=== PATIENT | female | born 1955 | race Caucasian/White ===

== ENCOUNTER 2023-09-04 08:35 | Inpatient (IN) | payer OTHER ==
[2023-09-04 10:17] LABS: BASO % 2.1 % (0-2.0); EOS % 1.8 % (0-4.5); HEMATOCRIT 34.6 % (32.4-45.2); HEMOGLOBIN 10.7 GM/dL (10.7-15.3); LYMPH % 12.4 % (8-40); MCH 24.6 pg (25.7-33.7); MCHC 30.9 g/dl (32.0-36.0); MEAN CELL VOLUME 79.7 fl (80-96); MEAN PLT VOLUME 7.7 fl (7.5-11.1); MONO % 12.6 % (3.8-10.2); NEUT % 71.1 % (42.8-82.8); PLATELET COUNT 347 10^3/uL (134-434); RBC 4.34 M/mm3 (3.60-5.2); RDW 19.1 % (11.6-15.6)
[2023-09-04 10:30] LABS: INR 0.98 (0.83-1.09); PROTHROMBIN TIME (PATIENT) 11.4 SEC (9.7-13.0)
[2023-09-04 10:32] LABS: ACTIVATED PTT 29.7 SECONDS (25.2-36.5)
[2023-09-04 10:41] LABS: POTASSIUM 3.9 mmol/L (3.5-5.1)
[2023-09-04 10:43] LABS: CALCIUM 8.8 mg/dL (8.5-10.1)
[2023-09-04 10:44] LABS: ALBUMIN 3.1 g/dl (3.4-5.0); BLOOD UREA NITROGEN 13.9 mg/dL (7-18); MAGNESIUM 2.1 mg/dL (1.8-2.4)
[2023-09-04 10:47] LABS: CREATININE 0.7 mg/dL (0.55-1.3)
[2023-09-04 10:48] LABS: BILIRUBIN,TOTAL 0.9 mg/dL (0.2-1)
[2023-09-04 10:52] LABS: TOT PROT 6.3 g/dl (6.4-8.2)
[2023-09-04] MEDS ORDERED: ACETAMINOPHEN 325 MG TABLET (FP) PO PRN (16:56)
[2023-09-04 23:54] LABS: PH,URINE 5.5 (5.0-8.0); URINE APPEARANCE CLEAR; URINE BILIRUBIN NEGATIVE (NEGATIVE); URINE COLOR YELLOW; URINE GLUCOSE (UA) NEGATIVE (NEGATIVE); URINE KETONE 2+ (NEGATIVE); URINE LEUK ESTERASE NEGATIVE (NEGATIVE); URINE NITRITE NEGATIVE (NEGATIVE); URINE PROTEIN NEGATIVE (NEGATIVE); URINE UROBILINOGEN 0.2 mg/dL (0.2-1.0)
[2023-09-05 08:10] LABS: BASO % 0.9 % (0-2.0); EOS % 1.9 % (0-4.5); HEMATOCRIT 35.3 % (32.4-45.2); HEMOGLOBIN 11.4 GM/dL (10.7-15.3); LYMPH % 13.3 % (8-40); MCH 25.5 pg (25.7-33.7); MCHC 32.3 g/dl (32.0-36.0); MEAN CELL VOLUME 79.1 fl (80-96); MEAN PLT VOLUME 7.8 fl (7.5-11.1); MONO % 8.7 % (3.8-10.2); NEUT % 75.2 % (42.8-82.8); PLATELET COUNT 368 10^3/uL (134-434); RBC 4.46 M/mm3 (3.60-5.2); RDW 18.5 % (11.6-15.6); WHITE BLOOD COUNT 4.9 K/mm3 (4.0-10.0)
[2023-09-05] MEDS ORDERED: ENOXAPARIN NA (PORCINE) 40 MG/0.4 ML DISP.SYRIN SQ ONE (08:15)
[2023-09-05 08:42] LABS: ALBUMIN 3.3 g/dl (3.4-5.0); BLOOD UREA NITROGEN 22.2 mg/dL (7-18); CALCIUM 8.9 mg/dL (8.5-10.1)
[2023-09-05 08:43] LABS: MAGNESIUM 2.2 mg/dL (1.8-2.4)
[2023-09-05 08:45] LABS: CREATININE 0.7 mg/dL (0.55-1.3); PHOSPHOROUS 3.8 mg/dL (2.5-4.9)
[2023-09-05 08:47] LABS: BILIRUBIN,TOTAL 0.5 mg/dL (0.2-1); TOT PROT 6.5 g/dl (6.4-8.2)
[2023-09-05] MEDS ORDERED: ENOXAPARIN NA (PORCINE) 40 MG/0.4 ML DISP.SYRIN SQ SCH (10:00)
[2023-09-05] MEDS ORDERED: SODIUM CHLORIDE 1,000 ML IV SCH (10:45)
[2023-09-05] MEDS: SODIUM CHLORIDE 1,000 ML IV SCH (11:04)
[2023-09-05 11:40] LABS: RETICULOCYTES 0.76 % (0.5-1.5)
[2023-09-05] MEDS ORDERED: SODIUM CHLORIDE FOR INHALATION 3 ML VIAL.NEB IH ONE (17:12)
[2023-09-06 07:24] LABS: HEMATOCRIT 33.1 % (32.4-45.2); HEMOGLOBIN 10.4 GM/dL (10.7-15.3); MCH 24.7 pg (25.7-33.7); MCHC 31.3 g/dl (32.0-36.0); MEAN CELL VOLUME 79.1 fl (80-96); MEAN PLT VOLUME 8.1 fl (7.5-11.1); PLATELET COUNT 341 10^3/uL (134-434); RBC 4.19 M/mm3 (3.60-5.2); RDW 18.6 % (11.6-15.6); WHITE BLOOD COUNT 4.7 K/mm3 (4.0-10.0)
[2023-09-06 07:56] LABS: ALBUMIN 3.1 g/dl (3.4-5.0); BLOOD UREA NITROGEN 21.4 mg/dL (7-18); CALCIUM 8.6 mg/dL (8.5-10.1)
[2023-09-06 07:59] LABS: CREATININE 0.7 mg/dL (0.55-1.3)
[2023-09-06 08:01] LABS: BILIRUBIN,TOTAL 0.4 mg/dL (0.2-1)
[2023-09-06] MEDS ORDERED: SODIUM CHLORIDE NASAL SPRAY 44 ML BOTTLE NS PRN (16:54)
[2023-09-06] MEDS: SODIUM CHLORIDE 1,000 ML IV SCH (19:46)
[2023-09-07 00:36] VITALS: BMI 14.6
[2023-09-07] MEDS: ASPIRIN COATED 81 MG TABLET.EC PO SCH (09:38)
[2023-09-07] MEDS: FERROUS GLUCONATE 324 MG TAB (FP) PO SCH (09:38)
[2023-09-07] MEDS: SODIUM CHLORIDE 1,000 ML IV SCH (12:57)
[2023-09-07] MEDS ORDERED: ZOLPIDEM TARTRATE 5 MG TABLET PO ONE (20:00)
[2023-09-08 07:20] LABS: HEMATOCRIT 33.6 % (32.4-45.2); HEMOGLOBIN 10.6 GM/dL (10.7-15.3); MCH 24.9 pg (25.7-33.7); MCHC 31.6 g/dl (32.0-36.0); MEAN CELL VOLUME 78.8 fl (80-96); MEAN PLT VOLUME 8.4 fl (7.5-11.1); PLATELET COUNT 328 10^3/uL (134-434); RBC 4.26 M/mm3 (3.60-5.2); RDW 19.3 % (11.6-15.6); WHITE BLOOD COUNT 5.1 K/mm3 (4.0-10.0)
[2023-09-08 07:29] LABS: POTASSIUM 4.5 mmol/L (3.5-5.1)
[2023-09-08 07:32] LABS: CALCIUM 9.2 mg/dL (8.5-10.1)
[2023-09-08 07:33] LABS: BLOOD UREA NITROGEN 9.8 mg/dL (7-18); MAGNESIUM 1.8 mg/dL (1.8-2.4)
[2023-09-08 07:36] LABS: CREATININE 0.7 mg/dL (0.55-1.3); PHOSPHOROUS 4.2 mg/dL (2.5-4.9)
[2023-09-08] MEDS: ASPIRIN COATED 81 MG TABLET.EC PO SCH (09:26)
[2023-09-08] MEDS: FERROUS GLUCONATE 324 MG TAB (FP) PO SCH (09:26)
[2023-09-08] MEDS ORDERED: SODIUM CHLORIDE 1,000 ML IV SCH (14:45)
[2023-09-08] MEDS ORDERED: ZOLPIDEM TARTRATE 5 MG TABLET PO ONE (19:55)
[2023-09-09 07:10] LABS: HEMATOCRIT 31.6 % (32.4-45.2); HEMOGLOBIN 10.1 GM/dL (10.7-15.3); MCH 25.2 pg (25.7-33.7); MCHC 32.1 g/dl (32.0-36.0); MEAN CELL VOLUME 78.6 fl (80-96); MEAN PLT VOLUME 8.5 fl (7.5-11.1); PLATELET COUNT 293 10^3/uL (134-434); RBC 4.02 M/mm3 (3.60-5.2); RDW 18.9 % (11.6-15.6); WHITE BLOOD COUNT 5.2 K/mm3 (4.0-10.0)
[2023-09-09 07:32] LABS: POTASSIUM 4.4 mmol/L (3.5-5.1)
[2023-09-09 07:37] LABS: BLOOD UREA NITROGEN 7.8 mg/dL (7-18)
[2023-09-09 07:39] LABS: ALBUMIN 2.8 g/dl (3.4-5.0)
[2023-09-09 07:42] LABS: CREATININE 0.7 mg/dL (0.55-1.3)
[2023-09-09 07:43] LABS: BILIRUBIN,TOTAL 0.4 mg/dL (0.2-1); TOT PROT 5.4 g/dl (6.4-8.2)
[2023-09-09 09:08] VITALS: RESP 18; TEMP 98.7
[2023-09-09] MEDS: ASPIRIN COATED 81 MG TABLET.EC PO SCH (10:03)
[2023-09-09] MEDS: FERROUS GLUCONATE 324 MG TAB (FP) PO SCH (10:03)
[2023-09-09 10:19] VITALS: BP 98/66; PULSE 78
== END 2023-09-09 16:04 | DRG 640 ==
LOC: JER 08:35 → JERBED 12:23 → OBSVTOIN 09-05 13:31 → J4W 09-05 19:00
PROVIDERS: ADMIT Internal Medicine; ATTEND Internal Medicine
DX: E86.0 Dehydration (principal); E43 Unspecified severe protein-calorie malnutrition; R04.2 Hemoptysis; Z68.1 Body mass index [BMI] 19.9 or less, adult; I95.1 Orthostatic hypotension; E86.9 Volume depletion, unspecified; I48.91 Unspecified atrial fibrillation; M48.02 Spinal stenosis, cervical region; D50.9 Iron deficiency anemia, unspecified
CPT/HCPCS: 0241U-QW; 36415; 70450-TC; 71045-TC-FY; 71250-TC; 80048; 80053; 81003; 82607; 82728; 82746; 82962; 83540; 83550; 83735; 84100; 84484; 85025; 85027; 85045; 85379; 85610; 85730; 86850; 86900; 86901; 87086; 87186; 93005; 93010; 93306-TC; 97116-GP; 97162-GP; 99285-25; G0378

== ENCOUNTER 2023-11-06 11:22 | Inpatient (IN) | payer OTHER ==
[2023-11-06] MEDS ORDERED: ACETAMINOPHEN INJECTION 100 ML IVPB ONE (13:44)
[2023-11-06] MEDS: ACETAMINOPHEN 1000 MG/100 ML BAG IVPB ONE (13:54)
[2023-11-06] MEDS: SODIUM CHLORIDE 0.9% 500 ML INFUS.BAG IV ONE (13:55)
[2023-11-06 13:56] LABS: VENOUS BASE EXCESS -9.4 mmol/L (-2-2); VENOUS O2 SATURATION 72.7 % (70-80); VENOUS PH 7.265 (7.310-7.410)
[2023-11-06 14:03] LABS: HEMATOCRIT 45.5 % (32.4-45.2); HEMOGLOBIN 14.4 GM/dL (10.7-15.3); MCH 25.6 pg (25.7-33.7); MCHC 31.6 g/dl (32.0-36.0); MEAN PLT VOLUME 8.3 fl (7.5-11.1); PLATELET COUNT 398 10^3/uL (134-434); RBC 5.61 M/mm3 (3.60-5.2); RDW 24.8 % (11.6-15.6)
[2023-11-06 14:10] LABS: PROTHROMBIN TIME (PATIENT) 11.6 SEC (9.7-13.0)
[2023-11-06 14:13] LABS: ACTIVATED PTT 30.7 SECONDS (25.2-36.5)
[2023-11-06 14:17] LABS: POTASSIUM 4.8 mmol/L (3.5-5.1)
[2023-11-06 14:19] LABS: CALCIUM 9.4 mg/dL (8.5-10.1)
[2023-11-06 14:20] LABS: ALBUMIN 3.9 g/dl (3.4-5.0); BLOOD UREA NITROGEN 41.1 mg/dL (7-18); MAGNESIUM 2.2 mg/dL (1.8-2.4)
[2023-11-06 14:23] LABS: CREATININE 1.8 mg/dL (0.55-1.3); PHOSPHOROUS 4.9 mg/dL (2.5-4.9)
[2023-11-06 14:24] LABS: BILIRUBIN,TOTAL 0.5 mg/dL (0.2-1); TOT PROT 7.4 g/dl (6.4-8.2)
[2023-11-06 14:40] LABS: ANISOCYTOSIS 2+; MACROCYTOSIS 0
[2023-11-06 15:26] LABS: EPI CELLS 24 /uL (0-25.1); HYALINE CASTS 14 /uL (0-3.1); URINE APPEARANCE CLEAR; URINE BACTERIA 12 /uL (0-1359); URINE BILIRUBIN NEGATIVE (NEGATIVE); URINE COLOR DK YELLOW; URINE GLUCOSE (UA) NEGATIVE (NEGATIVE); URINE KETONE 2+ (NEGATIVE); URINE LEUK ESTERASE TRACE (NEGATIVE); URINE NITRITE NEGATIVE (NEGATIVE); URINE PROTEIN 1+ (NEGATIVE); URINE RBC 20 /uL (0-23.9); URINE WBC 51 /uL (0-25.8)
[2023-11-06] MEDS: SODIUM CHLORIDE 1,000 ML IV SCH (16:31)
[2023-11-06 20:21] LABS: POTASSIUM 3.9 mmol/L (3.5-5.1)
[2023-11-06 20:23] LABS: BLOOD UREA NITROGEN 37.8 mg/dL (7-18)
[2023-11-06 20:26] LABS: CREATININE 1.4 mg/dL (0.55-1.3)
[2023-11-06] MEDS: QUEtiapine FUMARATE 50 MG TABLET PO SCH (22:38)
[2023-11-06] MEDS: HEPARIN NA (PORCINE) 5,000 UNITS/ML 1ML VIAL SQ SCH (22:38)
[2023-11-07] MEDS: ACETAMINOPHEN 325 MG TABLET (FP) PO PRN (07:00)
[2023-11-07 08:26] LABS: HEMATOCRIT 30.4 % (32.4-45.2); MCH 26.4 pg (25.7-33.7); MCHC 33.1 g/dl (32.0-36.0); MEAN CELL VOLUME 79.9 fl (80-96); MEAN PLT VOLUME 8.1 fl (7.5-11.1); PLATELET COUNT 268 10^3/uL (134-434); RDW 24.5 % (11.6-15.6); WHITE BLOOD COUNT 6.9 K/mm3 (4.0-10.0)
[2023-11-07 08:43] LABS: POTASSIUM 3.7 mmol/L (3.5-5.1)
[2023-11-07 08:45] LABS: BLOOD UREA NITROGEN 28.8 mg/dL (7-18); CALCIUM 8.2 mg/dL (8.5-10.1)
[2023-11-07 08:46] LABS: MAGNESIUM 1.8 mg/dL (1.8-2.4)
[2023-11-07 08:49] LABS: PHOSPHOROUS 2.6 mg/dL (2.5-4.9)
[2023-11-07 08:50] LABS: BILIRUBIN,TOTAL 0.3 mg/dL (0.2-1)
[2023-11-07 08:54] LABS: ALBUMIN 2.5 g/dl (3.4-5.0)
[2023-11-07] MEDS: SODIUM CHLORIDE 1,000 ML IV STA ×2 (10:00→11:13)
[2023-11-07] MEDS: MIRTAZAPINE 15 MG TABLET (FP) PO SCH (10:00)
[2023-11-07] MEDS ORDERED: ENOXAPARIN NA (PORCINE) 30 MG/0.3 ML DISP.SYRIN SQ SCH (10:00)
[2023-11-07] MEDS: LEVOTHYROXINE NA 25 MCG TABLET (FP) PO SCH (12:55)
[2023-11-08 09:14] LABS: BASO % 0.7 % (0-2.0); EOS % 0.8 % (0-4.5); HEMATOCRIT 30.9 % (32.4-45.2); HEMOGLOBIN 9.8 GM/dL (10.7-15.3); LYMPH % 7.8 % (8-40); MCH 25.6 pg (25.7-33.7); MCHC 31.7 g/dl (32.0-36.0); MEAN CELL VOLUME 80.9 fl (80-96); MEAN PLT VOLUME 8.1 fl (7.5-11.1); MONO % 9.2 % (3.8-10.2); NEUT % 81.5 % (42.8-82.8); PLATELET COUNT 237 10^3/uL (134-434); RBC 3.82 M/mm3 (3.60-5.2); RDW 25.1 % (11.6-15.6); RETICULOCYTES 0.39 % (0.5-1.5)
[2023-11-08 09:34] LABS: POTASSIUM 3.3 mmol/L (3.5-5.1)
[2023-11-08 09:37] LABS: ALBUMIN 2.6 g/dl (3.4-5.0); BLOOD UREA NITROGEN 13.3 mg/dL (7-18); CALCIUM 7.6 mg/dL (8.5-10.1)
[2023-11-08 09:38] LABS: MAGNESIUM 1.6 mg/dL (1.8-2.4)
[2023-11-08 09:41] LABS: PHOSPHOROUS 1.8 mg/dL (2.5-4.9)
[2023-11-08 09:42] LABS: BILIRUBIN,TOTAL 0.3 mg/dL (0.2-1); CREATININE 0.6 mg/dL (0.55-1.3); TOT PROT 5.2 g/dl (6.4-8.2)
[2023-11-08] MEDS: MAGNESIUM 1GM/D5W 100ML - 100 ML IVPB IVPB ONE (13:20)
[2023-11-08] MEDS: NAPH,MB-DB/K PH,MBDB POWDER PACKET PO ONE (13:20)
[2023-11-08] MEDS: POTASSIUM CHLORIDE ORAL LIQUID 20 MEQ/15 ML PO ONE (17:36)
[2023-11-08] MEDS: AMINO ACIDS 4.25%/D5W 1,000 ML IV SCH (18:42)
[2023-11-08 20:00] VITALS: BMI 12.8
[2023-11-08] MEDS: ONDANSETRON 4 MG/2 ML VIAL IVPUSH ONE (22:50)
[2023-11-08] MEDS: PANTOPRAZOLE SODIUM 40 MG VIAL IVPUSH ONE (22:50)
[2023-11-09 08:56] LABS: POTASSIUM 3.9 mmol/L (3.5-5.1)
[2023-11-09 08:57] LABS: HEMATOCRIT 30.2 % (32.4-45.2); HEMOGLOBIN 10.1 GM/dL (10.7-15.3); MCH 26.7 pg (25.7-33.7); MCHC 33.5 g/dl (32.0-36.0); MEAN CELL VOLUME 79.6 fl (80-96); MEAN PLT VOLUME 8.4 fl (7.5-11.1); PLATELET COUNT 215 10^3/uL (134-434); RDW 24.8 % (11.6-15.6); WHITE BLOOD COUNT 4.4 K/mm3 (4.0-10.0)
[2023-11-09 08:59] LABS: BLOOD UREA NITROGEN 8.3 mg/dL (7-18); CALCIUM 8.1 mg/dL (8.5-10.1)
[2023-11-09 09:01] LABS: ALBUMIN 2.4 g/dl (3.4-5.0); MAGNESIUM 1.7 mg/dL (1.8-2.4)
[2023-11-09 09:02] LABS: CREATININE 0.5 mg/dL (0.55-1.3); PHOSPHOROUS 1.9 mg/dL (2.5-4.9)
[2023-11-09 09:04] LABS: BILIRUBIN,TOTAL 0.2 mg/dL (0.2-1)
[2023-11-09] MEDS: PANTOPRAZOLE SODIUM 40 MG VIAL IVPUSH SCH (10:45)
[2023-11-09] MEDS: MAGNESIUM 1GM/D5W 100ML - 100 ML IVPB IVPB ONE (12:00)
[2023-11-09] MEDS: IRON SUCROSE INJECTION 200 MG in SODIUM CHLORIDE 100 ML IVPB ONE (15:14)
[2023-11-09] MEDS: MIRTAZAPINE 15 MG TABLET (FP) PO SCH (22:02)
[2023-11-09] MEDS: POLYETHYLENE GLYCOL (HEALTHYLAX) 3350 17 GM PACKET PO SCH (22:04)
[2023-11-10] MEDS: NAPH,MB-DB/K PH,MBDB POWDER PACKET PO SCH (09:10)
[2023-11-10 10:33] LABS: HEMATOCRIT 34.3 % (32.4-45.2); MCH 25.9 pg (25.7-33.7); MCHC 32.2 g/dl (32.0-36.0); MEAN CELL VOLUME 80.5 fl (80-96); MEAN PLT VOLUME 8.7 fl (7.5-11.1); PLATELET COUNT 250 10^3/uL (134-434); RBC 4.26 M/mm3 (3.60-5.2); RDW 25.1 % (11.6-15.6); WHITE BLOOD COUNT 4.6 K/mm3 (4.0-10.0)
[2023-11-10 10:54] LABS: POTASSIUM 3.6 mmol/L (3.5-5.1)
[2023-11-10 11:04] LABS: ALBUMIN 2.7 g/dl (3.4-5.0); CALCIUM 8.5 mg/dL (8.5-10.1); MAGNESIUM 1.9 mg/dL (1.8-2.4)
[2023-11-10 11:05] LABS: BLOOD UREA NITROGEN 9.5 mg/dL (7-18)
[2023-11-10 11:06] LABS: BILIRUBIN,TOTAL 0.2 mg/dL (0.2-1); TOT PROT 5.5 g/dl (6.4-8.2)
[2023-11-10 11:07] LABS: CREATININE 0.5 mg/dL (0.55-1.3)
[2023-11-10 20:11] LABS: GLIADIN ANTIBODY IGA 5 units (0-19); GLIADIN ANTIBODY IGG 2 units (0-19); TRANSGLUTAMINASE IGG < 2 U/mL (0-5)
[2023-11-11 10:11] LABS: HEMOGLOBIN 11.1 GM/dL (10.7-15.3); MCH 26.1 pg (25.7-33.7); MCHC 32.6 g/dl (32.0-36.0); MEAN CELL VOLUME 80.2 fl (80-96); MEAN PLT VOLUME 8.1 fl (7.5-11.1); PLATELET COUNT 265 10^3/uL (134-434); RBC 4.24 M/mm3 (3.60-5.2); RDW 24.9 % (11.6-15.6); WHITE BLOOD COUNT 4.7 K/mm3 (4.0-10.0)
[2023-11-11 10:21] LABS: POTASSIUM 3.4 mmol/L (3.5-5.1)
[2023-11-11 10:27] LABS: CALCIUM 8.3 mg/dL (8.5-10.1)
[2023-11-11 10:28] LABS: ALBUMIN 2.7 g/dl (3.4-5.0); MAGNESIUM 1.7 mg/dL (1.8-2.4)
[2023-11-11 10:31] LABS: CREATININE 0.6 mg/dL (0.55-1.3); PHOSPHOROUS 2.3 mg/dL (2.5-4.9)
[2023-11-11 10:32] LABS: BILIRUBIN,TOTAL 0.3 mg/dL (0.2-1)
[2023-11-11 10:36] LABS: TOT PROT 5.6 g/dl (6.4-8.2)
[2023-11-11 10:39] LABS: BLOOD UREA NITROGEN 14.9 mg/dL (7-18)
[2023-11-11 17:10] LABS: IG A QN SERUM. 228 mg/dL (87-352)
[2023-11-11] MEDS: MAGNESIUM SULF 50% (8.12 MEQ/2 ML-1 GM VIAL) IVPB ONE (17:21)
[2023-11-11] MEDS: QUEtiapine FUMARATE 25 MG TABLET PO SCH (17:21)
[2023-11-11] MEDS: DRONABINOL 5 MG CAPSULE PO SCH ×2 (17:21→17:35)
[2023-11-11] MEDS: HEPARIN NA (PORCINE) 5,000 UNITS/ML 1ML VIAL SQ SCH (22:02)
[2023-11-11] MEDS: POTASSIUM CHLORIDE ORAL LIQUID 20 MEQ/15 ML PO ONE (22:02)
[2023-11-12 08:26] LABS: HEMATOCRIT 31.6 % (32.4-45.2); HEMOGLOBIN 10.5 GM/dL (10.7-15.3); MCH 26.8 pg (25.7-33.7); MCHC 33.4 g/dl (32.0-36.0); MEAN CELL VOLUME 80.2 fl (80-96); MEAN PLT VOLUME 8.5 fl (7.5-11.1); PLATELET COUNT 219 10^3/uL (134-434); RBC 3.94 M/mm3 (3.60-5.2); RDW 24.8 % (11.6-15.6); WHITE BLOOD COUNT 4.8 K/mm3 (4.0-10.0)
[2023-11-12 08:42] LABS: POTASSIUM 4.4 mmol/L (3.5-5.1)
[2023-11-12 08:49] LABS: BLOOD UREA NITROGEN 14.7 mg/dL (7-18)
[2023-11-12 08:51] LABS: CALCIUM 8.5 mg/dL (8.5-10.1)
[2023-11-12 08:52] LABS: MAGNESIUM 1.9 mg/dL (1.8-2.4); PHOSPHOROUS 2.8 mg/dL (2.5-4.9)
[2023-11-12 08:53] LABS: CREATININE 0.5 mg/dL (0.55-1.3)
[2023-11-12] MEDS: MIRTAZAPINE 15 MG TABLET (FP) PO SCH (22:49)
[2023-11-12] MEDS: OLANZapine 5 MG TABLET PO SCH (22:49)
[2023-11-13 07:32] LABS: POTASSIUM 4.3 mmol/L (3.5-5.1)
[2023-11-13 07:39] LABS: CALCIUM 8.2 mg/dL (8.5-10.1)
[2023-11-13 07:40] LABS: BLOOD UREA NITROGEN 9.8 mg/dL (7-18); MAGNESIUM 2.1 mg/dL (1.8-2.4)
[2023-11-13 07:43] LABS: CREATININE 0.5 mg/dL (0.55-1.3); PHOSPHOROUS 3.3 mg/dL (2.5-4.9)
[2023-11-13 07:46] LABS: HEMATOCRIT 32.6 % (32.4-45.2); HEMOGLOBIN 11.1 GM/dL (10.7-15.3); MCH 27.4 pg (25.7-33.7); MCHC 34.2 g/dl (32.0-36.0); MEAN CELL VOLUME 80.1 fl (80-96); MEAN PLT VOLUME 7.9 fl (7.5-11.1); PLATELET COUNT 298 10^3/uL (134-434); RBC 4.06 M/mm3 (3.60-5.2); RDW 24.8 % (11.6-15.6); WHITE BLOOD COUNT 5.1 K/mm3 (4.0-10.0)
[2023-11-13 17:07] LABS: ATYPICAL pANCA <1:20 titer (Neg:<1:20); C-ANCA <1:20 titer (Neg:<1:20)
[2023-11-14 10:00] LABS: HEMATOCRIT 34.3 % (32.4-45.2); HEMOGLOBIN 11.5 GM/dL (10.7-15.3); MCH 26.9 pg (25.7-33.7); MCHC 33.6 g/dl (32.0-36.0); MEAN CELL VOLUME 80.2 fl (80-96); MEAN PLT VOLUME 8.2 fl (7.5-11.1); PLATELET COUNT 267 10^3/uL (134-434); RBC 4.28 M/mm3 (3.60-5.2); RDW 25.3 % (11.6-15.6); WHITE BLOOD COUNT 5.3 K/mm3 (4.0-10.0)
[2023-11-14 10:12] LABS: POTASSIUM 4.4 mmol/L (3.5-5.1)
[2023-11-14 10:23] LABS: CALCIUM 8.4 mg/dL (8.5-10.1)
[2023-11-14 10:24] LABS: BLOOD UREA NITROGEN 11.1 mg/dL (7-18)
[2023-11-14 10:27] LABS: CREATININE 0.5 mg/dL (0.55-1.3); PHOSPHOROUS 3.2 mg/dL (2.5-4.9)
[2023-11-15 09:01] LABS: BLOOD UREA NITROGEN 11.9 mg/dL (7-18)
[2023-11-15 09:04] LABS: CREATININE 0.6 mg/dL (0.55-1.3); PHOSPHOROUS 3.2 mg/dL (2.5-4.9)
[2023-11-15 09:19] LABS: HEMATOCRIT 26.5 % (32.4-45.2); HEMOGLOBIN 8.7 GM/dL (10.7-15.3); MCHC 32.8 g/dl (32.0-36.0); MEAN CELL VOLUME 82.4 fl (80-96); MEAN PLT VOLUME 8.3 fl (7.5-11.1); PLATELET COUNT 354 10^3/uL (134-434); RBC 3.22 M/mm3 (3.60-5.2); WHITE BLOOD COUNT 4.7 K/mm3 (4.0-10.0)
[2023-11-16] MEDS: DRONABINOL 5 MG CAPSULE PO SCH (10:41)
[2023-11-16] MEDS: FAMOTIDINE 20 MG TABLET PO ONE (14:18)
[2023-11-17 08:27] LABS: HEMATOCRIT 32.3 % (32.4-45.2); HEMOGLOBIN 10.8 GM/dL (10.7-15.3); MCHC 33.3 g/dl (32.0-36.0); MEAN PLT VOLUME 7.9 fl (7.5-11.1); PLATELET COUNT 354 10^3/uL (134-434); RBC 3.99 M/mm3 (3.60-5.2); RDW 25.7 % (11.6-15.6); WHITE BLOOD COUNT 4.2 K/mm3 (4.0-10.0)
[2023-11-17 08:38] LABS: POTASSIUM 4.6 mmol/L (3.5-5.1)
[2023-11-17 08:39] LABS: CALCIUM 8.3 mg/dL (8.5-10.1)
[2023-11-17 08:40] LABS: BLOOD UREA NITROGEN 19.8 mg/dL (7-18)
[2023-11-17 08:43] LABS: CREATININE 0.8 mg/dL (0.55-1.3)
[2023-11-17 14:24] VITALS: RESP 18
[2023-11-17 20:26] VITALS: BP 136/90; PULSE 87; TEMP 97.5
[2023-11-17] MEDS ORDERED: OLANZapine 5 MG TABLET PO SCH (22:00)
== END 2023-11-17 20:40 | DRG 881 ==
LOC: JER 11:22 → JERBED 14:39 → UNDOADMOB 14:39 → INTOOBSV 14:39 → JERBED 16:08 → J6S 16:56 → JERBED 16:56 → OBSVTOIN 11-07 10:38 → J6S 11-07 20:06
PROVIDERS: ADMIT Internal Medicine; ATTEND Internal Medicine
DX: F32.A Depression, unspecified (principal); E43 Unspecified severe protein-calorie malnutrition; E87.21 Acute metabolic acidosis; N17.9 Acute kidney failure, unspecified; R64 Cachexia; Z68.1 Body mass index [BMI] 19.9 or less, adult; M48.061 Spinal stenosis, lumbar region without neurogenic claudication; E86.0 Dehydration; I48.91 Unspecified atrial fibrillation; D50.9 Iron deficiency anemia, unspecified; M48.02 Spinal stenosis, cervical region; R62.7 Adult failure to thrive; K58.8 Other irritable bowel syndrome; G47.00 Insomnia, unspecified; J44.9 Chronic obstructive pulmonary disease, unspecified; M81.0 Age-related osteoporosis without current pathological fracture; E03.9 Hypothyroidism, unspecified; D18.09 Hemangioma of other sites; R14.0 Abdominal distension (gaseous); M79.7 Fibromyalgia
CPT/HCPCS: 0241U-QW; 36415; 70450-TC; 71045-TC-FY; 72170-TC-FY; 74178-TC; 80048; 80053; 81003; 82010; 82105; 82272; 82378; 82550; 82553; 82607; 82728; 82746; 82784; 82803; 82962; 83516; 83520; 83540; 83550; 83735; 84100; 84134; 84155; 84165; 84436; 84443; 84484; 85025; 85027; 85045; 85610; 85730; 86038; 86140; 86256; 86301; 86334; 86480; 87086; 93005; 93010; 97116-GP; 97162-GP; 99285-25; G0378; J0131; J1644; J1756

== ENCOUNTER 2023-11-17 21:42 | Observation (INO) | payer OTHER ==
[2023-11-17 22:10] VITALS: RESP 19
[2023-11-17] MEDS ORDERED: SIMETHICONE 80 MG TAB.CHEW (FP) PO PRN (22:51)
[2023-11-18 02:26] VITALS: TEMP 97.7
[2023-11-18] MEDS: LEVOTHYROXINE NA 25 MCG TABLET (FP) PO SCH (06:33)
[2023-11-18 06:40] VITALS: BP 104/60; PULSE 71
[2023-11-18] MEDS: DRONABINOL 5 MG CAPSULE PO SCH (12:15)
[2023-11-18] MEDS ORDERED: MELATONIN 5 MG TABLETS PO SCH (22:00)
[2023-11-18] MEDS ORDERED: MIRTAZAPINE 15 MG TABLET (FP) PO SCH (22:00)
[2023-11-18] MEDS ORDERED: OLANZapine 5 MG TABLET PO SCH (22:00)
== END 2023-11-18 16:00 | disposition home health service (06) ==
LOC: JER 21:42 → JERBED 22:16 → J7W 11-18 01:33
PROVIDERS: ADMIT Internal Medicine; ATTEND Internal Medicine
DX: Z71.89 Other specified counseling (principal); M79.7 Fibromyalgia; D50.9 Iron deficiency anemia, unspecified; Z51.5 Encounter for palliative care; K90.0 Celiac disease; R62.7 Adult failure to thrive; K58.9 Irritable bowel syndrome, unspecified; R53.1 Weakness; R63.4 Abnormal weight loss; J44.9 Chronic obstructive pulmonary disease, unspecified; F32.A Depression, unspecified; G89.29 Other chronic pain; M54.50 Low back pain, unspecified; Z96.642 Presence of left artificial hip joint; M85.80 Other specified disorders of bone density and structure, unspecified site; Z88.2 Allergy status to sulfonamides; Z91.018 Allergy to other foods; Z91.010 Allergy to peanuts; Z91.040 Latex allergy status
CPT/HCPCS: 99285-25; G0378

== ENCOUNTER 2023-12-07 10:29 | Inpatient (IN) | payer OTHER ==
[2023-12-07 12:09] LABS: BASO % 0.3 % (0-2.0); EOS % 0.1 % (0-4.5); HEMOGLOBIN 16.1 GM/dL (10.7-15.3); LYMPH % 6.4 % (8-40); MCH 28.3 pg (25.7-33.7); MCHC 33.5 g/dl (32.0-36.0); MEAN CELL VOLUME 84.5 fl (80-96); MEAN PLT VOLUME 8.3 fl (7.5-11.1); MONO % 7.9 % (3.8-10.2); NEUT % 85.3 % (42.8-82.8); PLATELET COUNT 261 10^3/uL (134-434); RBC 5.68 M/mm3 (3.60-5.2); RDW 24.8 % (11.6-15.6); WHITE BLOOD COUNT 5.4 K/mm3 (4.0-10.0)
[2023-12-07] MEDS: SODIUM CHLORIDE 0.9% 500 ML INFUS.BAG IV ONE ×2 (12:10→14:00)
[2023-12-07 12:29] LABS: POTASSIUM 4.3 mmol/L (3.5-5.1)
[2023-12-07 12:32] LABS: BLOOD UREA NITROGEN 27.6 mg/dL (7-18); CALCIUM 9.8 mg/dL (8.5-10.1)
[2023-12-07 12:33] LABS: ALBUMIN 3.1 g/dl (3.4-5.0)
[2023-12-07 12:34] LABS: PHOSPHOROUS 3.4 mg/dL (2.5-4.9)
[2023-12-07 12:36] LABS: CREATININE 1.2 mg/dL (0.55-1.3)
[2023-12-07 12:37] LABS: ANISOCYTOSIS 2+; BILIRUBIN,TOTAL 0.6 mg/dL (0.2-1); MACROCYTOSIS 0; TOT PROT 6.9 g/dl (6.4-8.2)
[2023-12-07] MEDS ORDERED: HEPARIN NA (PORCINE) 5,000 UNITS/ML 1ML VIAL IVPUSH PRN (13:12)
[2023-12-07] MEDS ORDERED: HEPARIN INFUSION - 25,000 UNITS/500 ML INFUS.BAG IVPB ONE (13:23)
[2023-12-07 14:33] LABS: INR 1.12 (0.83-1.09)
[2023-12-07 14:35] LABS: ACTIVATED PTT 28.7 SECONDS (25.2-36.5)
[2023-12-07] MEDS: HEPARIN NA (PORCINE) 5,000 UNITS/ML 1ML VIAL IVPUSH ONE (14:40)
[2023-12-07] MEDS: HEPARIN INFUSION - 25,000 UNITS/500 ML INFUS.BAG IVPB SCH (14:40)
[2023-12-07] MEDS ORDERED: INSULIN (NOVOLOG) ASPART 100 UNITS/ML 10ML VIAL ONE (17:37)
[2023-12-07 19:10] LABS: EPI CELLS 32 /uL (0-25.1); HYALINE CASTS 7 /uL (0-3.1); PH,URINE 5.5 (5.0-8.0); URINE APPEARANCE CLEAR; URINE BACTERIA 23 /uL (0-1359); URINE BILIRUBIN NEGATIVE (NEGATIVE); URINE COLOR YELLOW; URINE GLUCOSE (UA) NEGATIVE (NEGATIVE); URINE KETONE 2+ (NEGATIVE); URINE LEUK ESTERASE TRACE (NEGATIVE); URINE NITRITE NEGATIVE (NEGATIVE); URINE PROTEIN 1+ (NEGATIVE); URINE RBC 25 /uL (0-23.9); URINE WBC 111 /uL (0-25.8)
[2023-12-07] MEDS: HEPARIN - 25,000 UNIT in SODIUM CHLORIDE 495 ML IV SCH (19:28)
[2023-12-07] MEDS ORDERED: ATORVASTATIN CA 40 MG TABLET (FP) ONE (21:30)
[2023-12-07] MEDS: MIRTAZAPINE 30 MG TABLET PO SCH (21:36)
[2023-12-07] MEDS: ATORVASTATIN CA 40 MG TABLET (FP) PO SCH (21:37)
[2023-12-07] MEDS: OLANZapine 5 MG TABLET PO SCH (22:21)
[2023-12-08 07:33] LABS: BASO % 0.9 % (0-2.0); EOS % 0.2 % (0-4.5); HEMATOCRIT 39.3 % (32.4-45.2); HEMOGLOBIN 12.5 GM/dL (10.7-15.3); LYMPH % 10.5 % (8-40); MCH 27.2 pg (25.7-33.7); MCHC 31.9 g/dl (32.0-36.0); MEAN CELL VOLUME 85.1 fl (80-96); MEAN PLT VOLUME 8.1 fl (7.5-11.1); NEUT % 77.4 % (42.8-82.8); PLATELET COUNT 213 10^3/uL (134-434); RBC 4.62 M/mm3 (3.60-5.2); RDW 24.1 % (11.6-15.6); WHITE BLOOD COUNT 4.7 K/mm3 (4.0-10.0)
[2023-12-08] MEDS ORDERED: LEVOTHYROXINE NA 25 MCG TABLET (FP) ONE (07:59)
[2023-12-08 08:03] LABS: POTASSIUM 3.8 mmol/L (3.5-5.1)
[2023-12-08 08:09] LABS: BLOOD UREA NITROGEN 21.3 mg/dL (7-18)
[2023-12-08] MEDS: LEVOTHYROXINE NA 25 MCG TABLET (FP) PO SCH (08:10)
[2023-12-08 08:12] LABS: CREATININE 0.9 mg/dL (0.55-1.3)
[2023-12-08 08:13] LABS: BILIRUBIN,TOTAL 0.5 mg/dL (0.2-1)
[2023-12-08 08:17] LABS: ALBUMIN 2.4 g/dl (3.4-5.0); CALCIUM 8.1 mg/dL (8.5-10.1)
[2023-12-08] MEDS: SODIUM CHLORIDE 1,000 ML IV SCH (10:44)
[2023-12-08] MEDS: DEXTROSE 5%-NORMAL SALINE 250 ML IV ONE (10:45)
[2023-12-08] MEDS ORDERED: DRONABINOL 5 MG CAPSULE PO ONE (11:32)
[2023-12-08] MEDS: DRONABINOL 5 MG CAPSULE PO SCH (11:40)
[2023-12-08 16:17] LABS: INR 1.39 (0.83-1.09); PROTHROMBIN TIME (PATIENT) 16.1 SEC (9.7-13.0)
[2023-12-08 16:20] LABS: ACTIVATED PTT 75.9 SECONDS (25.2-36.5)
[2023-12-08] MEDS: SODIUM CHLORIDE 250 ML IV STA (16:25)
[2023-12-08] MEDS ORDERED: ATORVASTATIN CA 40 MG TABLET (FP) ONE (21:14)
[2023-12-08] MEDS ORDERED: CARVEDILOL 3.125 MG TABLET (FP) ONE (21:14)
[2023-12-08] MEDS ORDERED: MIRTAZAPINE 15 MG TABLET (FP) ONE (21:15)
[2023-12-08] MEDS: CARVEDILOL 3.125 MG TABLET (FP) PO SCH (22:08)
[2023-12-09] MEDS: HEPARIN NA (PORCINE) 5,000 UNITS/ML 1ML VIAL IVPUSH PRN (00:42)
[2023-12-09 07:28] LABS: HEMATOCRIT 36.9 % (32.4-45.2); MCH 27.6 pg (25.7-33.7); MCHC 32.6 g/dl (32.0-36.0); MEAN CELL VOLUME 84.7 fl (80-96); MEAN PLT VOLUME 8.2 fl (7.5-11.1); PLATELET COUNT 176 10^3/uL (134-434); RBC 4.35 M/mm3 (3.60-5.2)
[2023-12-09 07:48] LABS: CHLORIDE 104 mmol/L (98-107); SODIUM 142 mmol/L (136-145)
[2023-12-09 07:49] LABS: CALCIUM 7.6 mg/dL (8.5-10.1)
[2023-12-09 07:50] LABS: CO2 27 mmol/L (21-32); GLUCOSE,RANDOM 56 mg/dL (74-106); MAGNESIUM 1.3 mg/dL (1.8-2.4)
[2023-12-09 07:51] LABS: ALBUMIN 2.3 g/dl (3.4-5.0); BLOOD UREA NITROGEN 9.1 mg/dL (7-18)
[2023-12-09 07:53] LABS: CREATININE 0.8 mg/dL (0.55-1.3); PHOSPHOROUS 1.8 mg/dL (2.5-4.9); SGOT/AST 28 U/L (15-37); SGPT/ALT 10 U/L (13-61)
[2023-12-09 07:55] LABS: BILIRUBIN,TOTAL 0.4 mg/dL (0.2-1); TOT PROT 4.9 g/dl (6.4-8.2)
[2023-12-09 07:56] LABS: ALK PHOS 96 U/L (45-117)
[2023-12-09 07:58] LABS: ANION GAP 12 mmol/L (4-13); POTASSIUM 2.9 mmol/L (3.5-5.1)
[2023-12-09] MEDS: MAGNESIUM SULF 50% (8.12 MEQ/2 ML-1 GM VIAL) IVPB ONE (09:30)
[2023-12-09] MEDS: ASPIRIN COATED 81 MG TABLET.EC PO SCH (10:18)
[2023-12-09] MEDS: POTASSIUM PHOSPHATE 30 MM in DEXTROSE 5%-WATER - 500 ML IVPB ONE (10:19)
[2023-12-09 14:22] VITALS: BMI 12.0
[2023-12-09] MEDS: MAGNESIUM SULF 50% (8.12 MEQ/2 ML-1 GM VIAL) IVPB SCH (16:15)
[2023-12-09] MEDS: ENOXAPARIN NA (PORCINE) 30 MG/0.3 ML DISP.SYRIN SQ ONE (16:15)
[2023-12-09] MEDS: AMINO ACIDS/PROTEIN HYDROLYS 30 ML LIQUID.PKT PO SCH (16:35)
[2023-12-09] MEDS ORDERED: DEXTROSE 5%-NORMAL SALINE 1,000 ML IV SCH (17:45)
[2023-12-09] MEDS: DEXTROSE 5%-NORMAL SALINE 1,000 ML IV SCH (18:20)
[2023-12-09] MEDS ORDERED: MIRTAZAPINE 15 MG TABLET (FP) ONE (20:53)
[2023-12-10 06:33] LABS: HEMATOCRIT 38.9 % (32.4-45.2); HEMOGLOBIN 12.7 GM/dL (10.7-15.3); MCH 27.4 pg (25.7-33.7); MCHC 32.7 g/dl (32.0-36.0); MEAN CELL VOLUME 83.7 fl (80-96); MEAN PLT VOLUME 7.2 fl (7.5-11.1); PLATELET COUNT 152 10^3/uL (134-434); RBC 4.65 M/mm3 (3.60-5.2); RDW 24.5 % (11.6-15.6); WHITE BLOOD COUNT 4.7 K/mm3 (4.0-10.0)
[2023-12-10 06:57] LABS: ALBUMIN 2.2 g/dl (3.4-5.0); BLOOD UREA NITROGEN 4.9 mg/dL (7-18); CALCIUM 7.8 mg/dL (8.5-10.1); MAGNESIUM 3.4 mg/dL (1.8-2.4)
[2023-12-10 07:01] LABS: CREATININE 0.6 mg/dL (0.55-1.3); PHOSPHOROUS 2.2 mg/dL (2.5-4.9)
[2023-12-10 07:02] LABS: BILIRUBIN,TOTAL 0.3 mg/dL (0.2-1)
[2023-12-10] MEDS: ENOXAPARIN NA (PORCINE) 30 MG/0.3 ML DISP.SYRIN SQ SCH (09:15)
[2023-12-10] MEDS: POTASSIUM PHOSPHATE 30 MM in DEXTROSE 5%-WATER - 500 ML IVPB ONE (09:34)
[2023-12-10] MEDS: POTASSIUM CHLORIDE ORAL LIQUID 20 MEQ/15 ML PO SCH (15:33)
[2023-12-10] MEDS: THIAMINE HCL 200 MG/2 ML VIAL IVPB SCH (15:33)
[2023-12-10] MEDS: LIPASE/PROTEASE/AMYLASE 24,000 UNIT CAPSULE PO SCH (17:19)
[2023-12-10] MEDS ORDERED: MIRTAZAPINE 15 MG TABLET (FP) ONE (21:42)
[2023-12-11 06:41] LABS: HEMATOCRIT 39.8 % (32.4-45.2); HEMOGLOBIN 12.9 GM/dL (10.7-15.3); MCH 27.3 pg (25.7-33.7); MCHC 32.3 g/dl (32.0-36.0); MEAN CELL VOLUME 84.5 fl (80-96); MEAN PLT VOLUME 7.5 fl (7.5-11.1); PLATELET COUNT 136 10^3/uL (134-434); RBC 4.71 M/mm3 (3.60-5.2); RDW 24.4 % (11.6-15.6); WHITE BLOOD COUNT 5.1 K/mm3 (4.0-10.0)
[2023-12-11 07:01] LABS: POTASSIUM 4.8 mmol/L (3.5-5.1)
[2023-12-11 07:06] LABS: ALBUMIN 2.3 g/dl (3.4-5.0); BLOOD UREA NITROGEN 4.8 mg/dL (7-18); CALCIUM 8.1 mg/dL (8.5-10.1)
[2023-12-11 07:09] LABS: CREATININE 0.7 mg/dL (0.55-1.3); MAGNESIUM 2.4 mg/dL (1.8-2.4); PHOSPHOROUS 2.4 mg/dL (2.5-4.9)
[2023-12-11 07:10] LABS: TOT PROT 5.3 g/dl (6.4-8.2)
[2023-12-11 07:25] LABS: BILIRUBIN,TOTAL 0.3 mg/dL (0.2-1)
[2023-12-11] MEDS ORDERED: MIRTAZAPINE 15 MG TABLET (FP) ONE (21:08)
[2023-12-11] MEDS ORDERED: ACETAMINOPHEN 1000 MG/100 ML BAG IVPB ONE ×2 (23:25)
[2023-12-12 06:41] LABS: HEMATOCRIT 39.8 % (32.4-45.2); HEMOGLOBIN 12.7 GM/dL (10.7-15.3); MCH 27.3 pg (25.7-33.7); MCHC 31.9 g/dl (32.0-36.0); MEAN CELL VOLUME 85.6 fl (80-96); MEAN PLT VOLUME 7.9 fl (7.5-11.1); PLATELET COUNT 148 10^3/uL (134-434); RBC 4.66 M/mm3 (3.60-5.2); RDW 23.6 % (11.6-15.6); WHITE BLOOD COUNT 3.7 K/mm3 (4.0-10.0)
[2023-12-12 06:57] LABS: POTASSIUM 4.7 mmol/L (3.5-5.1)
[2023-12-12 06:58] LABS: CALCIUM 8.4 mg/dL (8.5-10.1)
[2023-12-12 06:59] LABS: ALBUMIN 2.1 g/dl (3.4-5.0); BLOOD UREA NITROGEN 5.4 mg/dL (7-18); MAGNESIUM 2.2 mg/dL (1.8-2.4)
[2023-12-12 07:02] LABS: CREATININE 0.6 mg/dL (0.55-1.3); PHOSPHOROUS 2.5 mg/dL (2.5-4.9)
[2023-12-12 07:04] LABS: TOT PROT 4.9 g/dl (6.4-8.2)
[2023-12-12 07:09] LABS: BILIRUBIN,TOTAL 0.4 mg/dL (0.2-1)
[2023-12-12 14:06] VITALS: BP 106/65; PULSE 78; RESP 16; TEMP 97.5
== END 2023-12-12 16:52 | disposition home or self-care (01) | DRG 640 ==
LOC: JER 10:29 → JERBED 13:14 → J2W 12-09 00:25
PROVIDERS: ADMIT Internal Medicine; ATTEND Internal Medicine
DX: E86.0 Dehydration (principal); E43 Unspecified severe protein-calorie malnutrition; Z68.1 Body mass index [BMI] 19.9 or less, adult; I48.91 Unspecified atrial fibrillation; F32.A Depression, unspecified; G47.00 Insomnia, unspecified; M79.7 Fibromyalgia; D64.9 Anemia, unspecified; R62.7 Adult failure to thrive; K58.9 Irritable bowel syndrome, unspecified; J44.9 Chronic obstructive pulmonary disease, unspecified; M48.02 Spinal stenosis, cervical region; M81.0 Age-related osteoporosis without current pathological fracture; M85.88 Other specified disorders of bone density and structure, other site; M54.50 Low back pain, unspecified; D18.09 Hemangioma of other sites; E87.6 Hypokalemia; L89.152 Pressure ulcer of sacral region, stage 2; E83.39 Other disorders of phosphorus metabolism; E83.42 Hypomagnesemia; Z66 Do not resuscitate; Z96.642 Presence of left artificial hip joint
CPT/HCPCS: 36415; 71045-TC-FY; 80053; 80061; 81003; 82962; 83605; 83735; 84100; 84439; 84443; 84484; 85025; 85027; 85610; 85730; 86850; 86900; 86901; 87040; 87086; 87186; 93005; 93010; 93306-TC; 97116-GP; 97161-GP; 99291; J1644

== ENCOUNTER 2023-12-16 12:17 | Inpatient (IN) | payer OTHER ==
[2023-12-16] MEDS: ACETAMINOPHEN 1000 MG/100 ML BAG IVPB ONE (13:25)
[2023-12-16] MEDS ORDERED: ACETAMINOPHEN INJECTION 100 ML IVPB ONE (13:37)
[2023-12-16 14:10] LABS: BASO % 0.5 % (0-2.0); EOS % 0.1 % (0-4.5); HEMATOCRIT 30.2 % (32.4-45.2); HEMOGLOBIN 9.6 GM/dL (10.7-15.3); LYMPH % 6.2 % (8-40); MCH 27.6 pg (25.7-33.7); MCHC 31.6 g/dl (32.0-36.0); MEAN CELL VOLUME 87.1 fl (80-96); MEAN PLT VOLUME 6.3 fl (7.5-11.1); MONO % 11.4 % (3.8-10.2); NEUT % 81.8 % (42.8-82.8); PLATELET COUNT 228 10^3/uL (134-434); RBC 3.47 M/mm3 (3.60-5.2); RDW 22.7 % (11.6-15.6)
[2023-12-16 14:36] LABS: ANISOCYTOSIS 1+; MACROCYTOSIS 0
[2023-12-16 16:47] LABS: POTASSIUM 4.9 mmol/L (3.5-5.1)
[2023-12-16 16:49] LABS: BLOOD UREA NITROGEN 36.5 mg/dL (7-18)
[2023-12-16 16:52] LABS: CREATININE 1.2 mg/dL (0.55-1.3); PHOSPHOROUS 3.4 mg/dL (2.5-4.9)
[2023-12-16 16:54] LABS: BILIRUBIN,TOTAL 0.5 mg/dL (0.2-1)
[2023-12-16 17:12] LABS: ALBUMIN 2.8 g/dl (3.4-5.0); CALCIUM 9.1 mg/dL (8.5-10.1); TOT PROT 6.1 g/dl (6.4-8.2)
[2023-12-17 00:43] LABS: EPI CELLS 3 /uL (0-25.1); HYALINE CASTS 2 /uL (0-3.1); PH,URINE 5.5 (5.0-8.0); URINE APPEARANCE CLEAR; URINE BACTERIA 1057 /uL (0-1359); URINE BILIRUBIN NEGATIVE (NEGATIVE); URINE COLOR YELLOW; URINE GLUCOSE (UA) NEGATIVE (NEGATIVE); URINE KETONE 1+ (NEGATIVE); URINE LEUK ESTERASE NEGATIVE (NEGATIVE); URINE NITRITE NEGATIVE (NEGATIVE); URINE PROTEIN 1+ (NEGATIVE); URINE RBC 30 /uL (0-23.9)
[2023-12-17] MEDS: SODIUM CHLORIDE 1,000 ML IV SCH (03:35)
[2023-12-17] MEDS ORDERED: ACETAMINOPHEN 1000 MG/100 ML BAG IVPB PRN (03:45)
[2023-12-17] MEDS: LEVOTHYROXINE NA 25 MCG TABLET (FP) PO SCH (06:06)
[2023-12-17] MEDS: HEPARIN NA (PORCINE) 5,000 UNITS/ML 1ML VIAL SQ SCH (06:06)
[2023-12-17] MEDS: SERTRALINE HCL 50 MG TABLET (FP) PO SCH (07:09)
[2023-12-17 09:20] LABS: BASO % 1.1 % (0-2.0); EOS % 0.5 % (0-4.5); HEMATOCRIT 42.7 % (32.4-45.2); HEMOGLOBIN 13.7 GM/dL (10.7-15.3); LYMPH % 12.1 % (8-40); MCH 27.6 pg (25.7-33.7); MCHC 32.2 g/dl (32.0-36.0); MEAN CELL VOLUME 85.9 fl (80-96); MEAN PLT VOLUME 7.1 fl (7.5-11.1); MONO % 10.3 % (3.8-10.2); PLATELET COUNT 342 10^3/uL (134-434); RBC 4.97 M/mm3 (3.60-5.2); RDW 23.7 % (11.6-15.6); WHITE BLOOD COUNT 4.6 K/mm3 (4.0-10.0)
[2023-12-17] MEDS: CARVEDILOL 3.125 MG TABLET (FP) PO SCH (09:33)
[2023-12-17] MEDS: ASPIRIN COATED 81 MG TABLET.EC PO SCH (09:34)
[2023-12-17] MEDS: OLANZapine 5 MG TABLET PO SCH (09:34)
[2023-12-17 09:57] LABS: POTASSIUM 4.2 mmol/L (3.5-5.1)
[2023-12-17 10:00] LABS: CALCIUM 9.1 mg/dL (8.5-10.1)
[2023-12-17 10:01] LABS: ALBUMIN 2.9 g/dl (3.4-5.0); BLOOD UREA NITROGEN 30.5 mg/dL (7-18)
[2023-12-17 10:05] LABS: PHOSPHOROUS 2.8 mg/dL (2.5-4.9)
[2023-12-17 10:07] LABS: BILIRUBIN,TOTAL 0.5 mg/dL (0.2-1); TOT PROT 6.4 g/dl (6.4-8.2)
[2023-12-17] MEDS: DRONABINOL 5 MG CAPSULE PO SCH (12:06)
[2023-12-17] MEDS: SODIUM CHLORIDE 1,000 ML IV STA (12:22)
[2023-12-17 14:27] VITALS: BMI 10.5
[2023-12-17] MEDS: DEXTROSE 5%-NORMAL SALINE 500 ML IV ONE (15:27)
[2023-12-17 19:06] VITALS: BP 158/84; PULSE 86; RESP 18; TEMP 97.6
[2023-12-17] MEDS ORDERED: ATORVASTATIN CA 40 MG TABLET (FP) PO SCH (22:00)
[2023-12-17] MEDS ORDERED: MIRTAZAPINE 15 MG TABLET (FP) PO SCH (22:00)
== END 2023-12-17 19:52 | DRG 640 ==
LOC: JER 12:17 → JERBED 19:22 → J5S 12-17 00:06
PROVIDERS: ADMIT Internal Medicine; ATTEND Internal Medicine
DX: R62.7 Adult failure to thrive (principal); E43 Unspecified severe protein-calorie malnutrition; N17.9 Acute kidney failure, unspecified; Z68.1 Body mass index [BMI] 19.9 or less, adult; E03.9 Hypothyroidism, unspecified; I48.91 Unspecified atrial fibrillation; F32.9 Major depressive disorder, single episode, unspecified; M79.7 Fibromyalgia; J44.9 Chronic obstructive pulmonary disease, unspecified; I10 Essential (primary) hypertension; L89.152 Pressure ulcer of sacral region, stage 2; E78.5 Hyperlipidemia, unspecified; M48.02 Spinal stenosis, cervical region; D50.9 Iron deficiency anemia, unspecified; W18.30XA Fall on same level, unspecified, initial encounter; K58.9 Irritable bowel syndrome, unspecified; D18.09 Hemangioma of other sites; R26.2 Difficulty in walking, not elsewhere classified; Z71.89 Other specified counseling; Y99.8 Other external cause status; Y92.89 Other specified places as the place of occurrence of the external cause
CPT/HCPCS: 36415; 70450-TC; 72125-TC; 72128-TC; 72131-TC; 72170-TC-FY; 73060-TC-LT-FY; 73060-TC-RT-FY; 73521-TC-FY; 73630-TC-LT; 80053; 81003; 82136; 82550; 82607; 82746; 82962; 83735; 83918; 84100; 84439; 84443; 85025; 86850; 86900; 86901; 87086; 87186; 93005; 93010; 99285-25; J0131; J1644